=== PATIENT | female | born 1990 | race Caucasian/White ===

== ENCOUNTER 2020-05-30 16:09 | Outpatient (REF) | payer MEDICAID, SELFPAY | END 2020-05-30 16:10 | disposition home or self-care (01) | LOC: HO.LAB 16:09 | PROVIDERS: Visit Provider Internal Medicine | DX: Z20.828 Contact with and (suspected) exposure to other viral communicable diseases (principal) | CPT/HCPCS: C9803; U0003 ==

== ENCOUNTER 2020-06-13 15:20 | Outpatient (REF) | payer MEDICAID, SELFPAY ==
[2020-07-11 22:14] LABS: CT PCR NOT DETECTED (Not Detect.)
[2020-07-11 22:15] LABS: NG PCR NOT DETECTED (Not Detect.)
== END 2020-06-13 15:21 | disposition home or self-care (01) ==
LOC: HO.LAB 15:20
PROVIDERS: Visit Provider Advanced Practice Midwife
DX: Z30.430 Encounter for insertion of intrauterine contraceptive device (principal)
CPT/HCPCS: 81025; 87491; 87591

== ENCOUNTER 2020-10-09 08:26 | Outpatient (REF) | payer MEDICAID, SELFPAY ==
[2020-10-09 08:50] LABS: COVID-19 Test Negative (Negative)
== END 2020-10-09 08:27 | disposition home or self-care (01) ==
LOC: HO.LAB 08:26
PROVIDERS: Visit Provider Internal Medicine
DX: Z20.822 Contact with and (suspected) exposure to COVID-19 (principal)
CPT/HCPCS: 36415; 87635; C9803

== ENCOUNTER 2020-10-10 14:33 | Outpatient (REF) | payer MEDICAID, SELFPAY ==
[2020-10-15 14:22] LABS: HPV mRNA E6/E7 rflx Not Detected (Not Detected)
== END 2020-10-10 14:34 | disposition home or self-care (01) ==
LOC: HO.LAB 14:33
PROVIDERS: Visit Provider Advanced Practice Midwife
DX: Z01.419 Encounter for gynecological examination (general) (routine) without abnormal findings (principal); Z11.51 Encounter for screening for human papillomavirus (HPV); Z72.0 Tobacco use
CPT/HCPCS: 87624; 88141; 88142

== ENCOUNTER 2020-12-26 09:44 | Outpatient (REF) | payer MEDICAID, SELFPAY ==
[2020-12-26 15:06] LABS: CT PCR NOT DETECTED (Not Detect.); NG PCR NOT DETECTED (Not Detect.)
[2020-12-27 11:16] LABS: BV Int Neg Control Negative (Negative)
[2020-12-27 11:17] LABS: BV Int Pos Control Positive (Positive)
== END 2020-12-26 09:45 | disposition home or self-care (01) ==
LOC: HO.LAB 09:44
PROVIDERS: Visit Provider Obstetrics & Gynecology
DX: R87.610 Atypical squamous cells of undetermined significance on cytologic smear of cervix (ASC-US) (principal); Z11.3 Encounter for screening for infections with a predominantly sexual mode of transmission
CPT/HCPCS: 57456; 87480; 87491; 87510; 87591; 87660; 88305; 88342; 88360; 99212

== ENCOUNTER → 2021-01-08 11:18 | Outpatient (BNVA) | payer MEDICAID, SELFPAY | PROVIDERS: Visit Provider Obstetrics & Gynecology ==

== ENCOUNTER → 2021-01-20 13:13 | Outpatient (BNVA) | payer MEDICAID, SELFPAY | PROVIDERS: Visit Provider Obstetrics & Gynecology | DX: N87.1 Moderate cervical dysplasia (principal); F17.210 Nicotine dependence, cigarettes, uncomplicated | CPT/HCPCS: 99212 ==

== ENCOUNTER 2021-01-23 06:51 | Day surgery (SDC) | payer MEDICAID, SELFPAY ==
[2021-01-16 13:48] VITALS: BMI 40.4
--- NOTE | 2021-01-22 08:32 | HO.ANESPROP2 ---
Documented by User: Willow Fish 01/22/21 08:33 HPI - Anesthesia Eval Consult details Narrative: 30yo F for Cone LEEP with Post Cone ECC PMFSH Active Problems Active Problems: All Active Problems (Updated 01/08/21 @ 11:31 by David Braden MD) SAMI II (cervical intraepithelial neoplasia II) (Acute) Screen for STD (sexually transmitted disease) (Acute) ASCUS of cervix with negative high risk HPV (Acute) Family History Family History Maternal Grandmother Breast cancer Surgical History Surgical History Hx of section Social History Social History Alcohol intake: never Patient Tobacco Use Status: Current everyday Tobacco user Cigarettes Per Day: 5 Use of substances other than those prescribed or required for medical reasons: No Are you DNR?: No Advance Directives: No Advance Directives Information Provided: Yes Gender identity: female Meds Allergies Allergy/AdvReac Type Severity Reaction Status Date / Time No Known Allergies Allergy Verified 01/20/21 13:45 Home Medications Medication Instructions Recorded Confirmed Last Taken Type levonorgestrel 20 mcg/24 hours (6 INTRAUTERINE 10/10/20 Unknown History yrs) 52 mg intrauterine device Exam Exam Date and Time: January 22, 2021 0832 Height,Weight and Vital Signs: Height 4 ft 11 in Weight 90.718 kg Assessment and Plan Assessment Anesthesia Assessment: Chart Reviewed Documented by User: Marianne Puri 01/23/21 07:54 PMFSH Family History Family History Maternal Grandmother Breast cancer Surgical History Surgical History Hx of section Social History Social History Alcohol intake: never Patient Tobacco Use Status: Current everyday Tobacco user Cigarettes Per Day: 5 Use of substances other than those prescribed or required for medical reasons: No Are you DNR?: No Advance Directives: No Advance Directives Information Provided: Yes Gender identity: female Meds Allergies Allergy/AdvReac Type Severity Reaction Status Date / Time No Known Allergies Allergy Verified 01/20/21 13:45 Home Medications Medication Instructions Recorded Confirmed Last Taken Type levonorgestrel 20 mcg/24 hours (6 INTRAUTERINE 10/10/20 Unknown History yrs) 52 mg intrauterine device Exam Airway Mallampati Class: II TM Dist: >3cm Neck ROM: Full Loose/Missing/Broken Teeth: No Heart: RRR Lungs: CTA Assessment and Plan Assessment Anesthesia Assessment: Anesthesia Plan Discussed and Chart Reviewed Final Anesthetic Review NPO: Yes ASA Class: III Final Preanesthetic Review: Meds/Allgs Chart Reviewed, Consent Obtained/Reviewed and Anes Risks/Benef Reviewed Patient Risk: Intermediate Procedure Risk: Low Anesthetic Plan Anesthetic Plan: GA Disposition: Standard PACU
[2021-01-23] VITALS (7 sets, daily range): BP systolic 114–131; BP diastolic 61–77; PULSE 82–88; RESP 16–18; TEMP 36.1–36.7; O2SAT 95–100
[2021-01-23 07:10] LABS: UPreg QC Valid YES; Urine Pregnancy NEGATIVE (NEGATIVE)
--- NOTE | 2021-01-23 07:33 | MHC.SHP ---
Pre-Procedural Eval Section A Date of Service: 01/23/21 The patient is an INPATIENT: No Changes since office visit: No Cold of Flu in the past 2 weeks, No New Medical Problems, No Changes in Medication and No Patient answered all questions The History & Physical has been completed within 30 days and I have reviewed it.: Yes Section B Chief Complaint: moderate cervical dysplasia Allergies: Allergies Allergy/AdvReac Type Severity Reaction Status Date / Time No Known Allergies Allergy Verified 01/20/21 13:45 Plan Diagnosis/Plan: Unchanged I have reviewed the history and physical and performed a pertinent physical examination on my patient. No changes have occurred unless specified.
--- NOTE | 2021-01-23 09:04 | PM.OP ---
Brief Operative Note Date of Service: 06/13/20 Pre-op diagnosis: SAMI II on ECC Post-op diagnosis: same Procedure: LEEP CONE with post CONE ECC Surgeon: David Braden MD Anesthesia: local and other (Paracervical block) Was an Water Reclamation Systems Operator used for this Procedure?: No Estimated blood loss (mL): 0 Pathology: other (Cerv cone, Endocx, Post cone ECC) Condition: stable Disposition: other (Home)
--- NOTE | 2021-01-23 09:05 | W.PM.OPN ---
Operative Note Operative Note Date of Service: 06/13/20 Narrative: Preop diagnosis: SAMI 2 on ECC Operation: LEEP Cone with post cone ECC Post op diagnosis: same Anesthesia: paracervical block+ mac Complications: none Pathology: cervical cone with endocervix & post cone RCC QBL: minimal Procedure: The patient was put in the dorsal lithotomy position, was prepped and draped in the usual sterile fashion. A sterile speculum was inserted inside the patient vagina. Using Lugol solution the cervix with Dyed with Lugol solution to identifiy the abnormal demarcating line. 10 cc of Marcaine0.5% with epinephrine were given at 2,4 , 8, and 10 o'clock. Using a medium-size loop wire, the cervical cone was excised followed by the endocervix &post cone ECC was done afterwards. Hemostasis was assured using cautery and Monsel solution. All instruments were taken out of the patient's vaginal cavity. the patient tolerated the procedure well and was discharged home with the following instructions: call if temperature is above 100.4, vaginal bleeding, abdominal pain or nausea or vomiting. Follow-up in the office in 2 weeks for postop visit
== END 2021-01-23 10:24 | disposition home or self-care (01) ==
LOC: HO.SSS 06:51
PROVIDERS: Nurse Practitioner; Visit Provider Obstetrics & Gynecology
PROC: 0UBC7ZZ Excision of Cervix, Via Natural or Artificial Opening (ICD-10-PCS; CPT 57522; principal; 2021-01-23 08:20)
DX: N87.1 Moderate cervical dysplasia (principal); F17.210 Nicotine dependence, cigarettes, uncomplicated
CPT/HCPCS: 57522; 81025; 88305; 88307; 88341; 88342; 88360; J1100; J1885; J2250; J2405; J3010

== ENCOUNTER → 2021-02-05 11:22 | Outpatient (BNVA) | payer MEDICAID, SELFPAY | PROVIDERS: Visit Provider Obstetrics & Gynecology ==

== ENCOUNTER 2021-04-08 11:38 | Outpatient (REF) | payer MEDICAID, SELFPAY | END 2021-04-08 11:39 | disposition home or self-care (01) | LOC: HO.LAB 11:38 | PROVIDERS: Visit Provider Internal Medicine | DX: Z20.822 Contact with and (suspected) exposure to COVID-19 (principal) | CPT/HCPCS: C9803; U0003; U0005 ==

== ENCOUNTER → 2021-06-19 14:17 | Outpatient (BNVA) | payer MEDICAID, SELFPAY | PROVIDERS: Visit Provider Advanced Practice Midwife ==

== ENCOUNTER → 2021-07-09 14:19 | Outpatient (BNVA) | payer MEDICAID, SELFPAY | PROVIDERS: Visit Provider Advanced Practice Midwife | DX: Z30.432 Encounter for removal of intrauterine contraceptive device (principal); Z53.8 Procedure and treatment not carried out for other reasons | CPT/HCPCS: 58301; 99212 ==

== ENCOUNTER 2021-07-10 14:58 | Outpatient (REF) | payer MEDICAID, SELFPAY ==
--- NOTE | ~2021-07-10 | US_ITS ---
EXAMINATION: US PELVIS CLINICAL INFORMATION: Missing IUD strings COMPARISON: Pelvic ultrasound 03/20/2018 TECHNIQUE: Ultrasound of the pelvis is performed using both transabdominal and transvaginal transducers along with Doppler. Transvaginal imaging is performed due to inadequate visualization transabdominally. FINDINGS: Uterus: The uterus is anteverted and measures 10.5 x 4.7 x 6.5 cm. The IUD is visualized at the level of the cervix. Nabothian cysts are present. The double wall endometrial thickness is 0.4 mm. The uterus is smooth in contour and has normal myometrial echogenicity. No visible fibroid. Adnexa: Both ovaries are visualized. There is normal color flow to the adnexa. There is no ovarian torsion. There is no pelvic ascites or fluid collection. Right ovary measures 3.7 x 2.4 x 2.2 cm. Left ovary measures 3.5 x 2.1 x 2.1 cm. US/US pelvic and transvaginal IMPRESSION: IUD at the level of the cervix.
== END 2021-07-10 14:59 | disposition home or self-care (01) ==
LOC: HO.US 14:58
PROVIDERS: Visit Provider Advanced Practice Midwife
DX: Z97.5 Presence of (intrauterine) contraceptive device (principal)
CPT/HCPCS: 76830; 76856

== ENCOUNTER → 2021-07-27 11:12 | Outpatient (BNVA) | payer MEDICAID, SELFPAY | PROVIDERS: Visit Provider Advanced Practice Midwife ==

== ENCOUNTER → 2021-08-04 12:51 | Outpatient (BNVA) | payer MEDICAID, SELFPAY | PROVIDERS: Visit Provider Obstetrics & Gynecology | DX: Z30.432 Encounter for removal of intrauterine contraceptive device (principal); Z53.8 Procedure and treatment not carried out for other reasons | CPT/HCPCS: 58301; 99212 ==

== ENCOUNTER → 2021-08-11 14:10 | Outpatient (BNVA) | payer MEDICAID, SELFPAY | PROVIDERS: Visit Provider Obstetrics & Gynecology | DX: T83.32XA Displacement of intrauterine contraceptive device, initial encounter (principal) | CPT/HCPCS: 99212 ==

== ENCOUNTER 2021-08-20 06:18 | Day surgery (SDC) | payer MEDICAID, SELFPAY ==
[2021-08-13 13:09] VITALS: BMI 38.7
--- NOTE | 2021-08-19 10:50 | HO.ANESPROP2 ---
Documented by User: Willow Fish NP 08/19/21 10:51 HPI - Anesthesia Eval Consult details Narrative: 31yo F for Hysteroscopic IUD Removal s/p LEEP 01/2021 with GA-LMA 4 PMFSH Active Problems Active Problems: All Active Problems (Updated 08/13/21 @ 13:08 by Zofia Cerda RN) Encounter for IUD removal (Acute) Unsuccessful attempt to remove intrauterine device (IUD) (Acute) Intrauterine contraceptive device threads lost (Acute) Past Medical History Medical History ASCUS of cervix with negative high risk HPV SAIM II (cervical intraepithelial neoplasia II) COVID-19 vaccine series completed History of intrauterine contraceptive device Migraine with aura Screen for STD (sexually transmitted disease) Family History Family History Maternal Grandmother Breast cancer Surgical History Surgical History History of loop electrical excision procedure (LEEP) History of surgery Hx of section Social History Social History Alcohol intake: never Patient Tobacco Use Status: Current everyday Tobacco user Tobacco use type: Cigarette Cigarettes Per Day: 6 Years Smoked: 3 Use of substances other than those prescribed or required for medical reasons: No Have you been hit, kicked, punched, or otherwise hurt by someone within the past year? If so, by whom?: No Are you DNR?: No Advance Directives: No Advance Directives Information Provided: Yes Advance Directives on File: No Recently lost weight without trying: No Eating poorly because of decreased appetite: No Nutrition Risks: No Nutritional Risk Patient : No FDLMP: 08/05/21 Gender identity: Female Meds Allergies Allergy/AdvReac Type Severity Reaction Status Date / Time No Known Allergies Allergy Verified 07/27/21 11:13 Home Medications Medication Instructions Recorded Confirmed Last Taken Type levonorgestrel 20 mcg/24 hours (7 20 mcg INTRAUTERINE ONCE 10/10/20 08/13/21 Unknown History yrs) 52 mg intrauterine device (Mirena) Exam Exam Date and Time: August 19, 2021 1050 Height,Weight and Vital Signs: Height 4 ft 11 in Weight 87 kg Assessment and Plan Assessment Anesthesia Assessment: Chart Reviewed Documented by User: Marianne Puri MD 08/20/21 07:55 PMFSH Past Medical History Medical History ASCUS of cervix with negative high risk HPV SAMI II (cervical intraepithelial neoplasia II) COVID-19 vaccine series completed History of intrauterine contraceptive device Migraine with aura Screen for STD (sexually transmitted disease) Family History Family History Maternal Grandmother Breast cancer Family history of problems with anesthesia: No Surgical History Surgical History History of loop electrical excision procedure (LEEP) History of surgery Hx of section History of Problems with Anesthesia: No Social History Social History Alcohol intake: never Patient Tobacco Use Status: Current everyday Tobacco user Tobacco use type: Cigarette Cigarettes Per Day: 6 Years Smoked: 3 Use of substances other than those prescribed or required for medical reasons: No Have you been hit, kicked, punched, or otherwise hurt by someone within the past year? If so, by whom?: No Are you DNR?: No Advance Directives: No Advance Directives Information Provided: Yes Advance Directives on File: No Recently lost weight without trying: No Eating poorly because of decreased appetite: No Nutrition Risks: No Nutritional Risk Patient : No FDLMP: 08/05/21 Gender identity: Female Meds Allergies Allergy/AdvReac Type Severity Reaction Status Date / Time No Known Allergies Allergy Verified 07/27/21 11:13 Home Medications Medication Instructions Recorded Confirmed Last Taken Type levonorgestrel 20 mcg/24 hours (7 20 mcg INTRAUTERINE ONCE 10/10/20 08/13/21 Unknown History yrs) 52 mg intrauterine device (Mirena) Exam Airway Mallampati Class: II TM Dist: >3cm Neck ROM: Full Loose/Missing/Broken Teeth: No Heart: RRR Lungs: CTA Assessment and Plan Final Anesthetic Review Family History of Problems with Anesthesia: No History of Problems with Anesthesia: No NPO: Yes ASA Class: III Final Preanesthetic Review: Meds/Allgs Chart Reviewed, Consent Obtained/Reviewed and Anes Risks/Benef Reviewed Patient Risk: Intermediate Procedure Risk: Low Anesthetic Plan Anesthetic Plan: GA Disposition: Standard PACU
[2021-08-20] VITALS (7 sets, daily range): BP systolic 96–118; BP diastolic 45–58; PULSE 65–72; RESP 16; TEMP 36.1–36.2; O2SAT 96–100
[2021-08-20 06:32] LABS: UPreg QC Valid YES; Urine Pregnancy NEGATIVE (NEGATIVE)
[2021-08-20] MEDS: Lactated Ringers 1,000 ML 100 ML IVCONT (06:45)
--- NOTE | 2021-08-20 07:35 | MHC.SHP ---
Pre-Procedural Eval Section A Date of Service: 08/20/21 The patient is an INPATIENT: No Changes since office visit: No Cold of Flu in the past 2 weeks, No New Medical Problems, No Changes in Medication and No Patient answered all questions The History & Physical has been completed within 30 days and I have reviewed it.: Yes Section B Chief Complaint: Unsuccessful attempt to remove IUD Allergies: Allergies Allergy/AdvReac Type Severity Reaction Status Date / Time No Known Allergies Allergy Verified 07/27/21 11:13 Plan Diagnosis/Plan: Unchanged I have reviewed the history and physical and performed a pertinent physical examination on my patient. No changes have occurred unless specified.
--- NOTE | 2021-08-20 08:02 | P.BOP_ITS ---
Brief Operative Note Date of Service: 08/20/21 Pre-op diagnosis: IUD complication, lost string Post-op diagnosis: same Procedure: Hysteroscopic IUD removal Surgeon: David Braden MD Anesthesia: MAC Was an Marketing Information Analyst used for this Procedure?: No Estimated blood loss (mL): 0 Pathology: other Condition: stable Disposition: PACU
--- NOTE | 2021-08-20 08:03 | P.OP_ITS ---
Operative Note Operative Note Date of Service: 08/20/21 Narrative: Preop Diagnosis: IUD complication, lost string Operation: Diagnostic Hysteroscopic IUD removal Post Op Diagnosis: same. IUD and string in utero QBL: Minimal Anesthesia: MAC Surgeon: David Braden MD Environmental Communications Specialist: None Complication: None Pathology: None Procedure: The patient was put in the dorsal lithotomy position, scrubbed, and draped in the usual manner. A sterile speculum was inserted in the patient's vagina. The anterior lip of the cervix was grasped with a single tooth tenaculum. The cervix was dilated up to 5 mm, then the scope was inserted in the patient's uterus. Inspection revealed IUD & its string in utero. A hysteroscopic grasper was introduced through the operative channel, the string grasped and IUD pulled out of the uterine cavity with no complications. At the end of the procedure, all instruments were taken out of the patient uterine and vaginal cavity. The single tooth tenaculum was removed and homeostasis was assured using pressure. The patient tolerated the procedure well and was transferred to the PACU in a stable condition.
== END 2021-08-20 09:44 | disposition home or self-care (01) ==
PROVIDERS: Visit Provider Obstetrics & Gynecology
PROC: (CPT 58562; principal; 2021-08-20 07:30)
DX: T83.32XA Displacement of intrauterine contraceptive device, initial encounter (principal); Y76.8 Miscellaneous obstetric and gynecological devices associated with adverse incidents, not elsewhere classified; Y92.9 Unspecified place or not applicable; F17.210 Nicotine dependence, cigarettes, uncomplicated
CPT/HCPCS: 58562; 81025; J1100; J2250; J2405; J3010

== ENCOUNTER → 2021-09-21 12:50 | Outpatient (BNVA) | payer MEDICAID, SELFPAY | PROVIDERS: Visit Provider Obstetrics & Gynecology | DX: T83.32XD Displacement of intrauterine contraceptive device, subsequent encounter (principal); F17.210 Nicotine dependence, cigarettes, uncomplicated | CPT/HCPCS: Q3014 ==

== ENCOUNTER 2022-12-18 19:02 | Emergency (ER) | payer MEDICAID, SELFPAY | END 2022-12-18 19:38 | disposition left against medical advice (07) | LOC: HO.ED 19:36 | PROVIDERS: Emergency Provider Emergency Medicine | DX: Z04.1 Encounter for examination and observation following transport accident (principal) ==